=== PATIENT | female | born 1980 | race Caucasian/White ===

== ENCOUNTER 2018-04-02 13:41 | Emergency (ER) | payer OTHER ==
[~2018-04-02] VITALS: Ht 177.8 cm; Wt 64.4 kg
[2018-04-02] MEDS ORDERED: CLINDAMYCIN HC300 MG PO (15:33)
[2018-04-02] MEDS ORDERED: KETO10TA2 PO (15:33)
[2018-04-02] MEDS ORDERED: ORPHENADRINE C100 MG PO (15:33)
[2018-04-02] MEDS ORDERED: INTESTINEX680 M1 PO (15:33)
== END 2018-04-02 15:53 | disposition home or self-care (01) ==
LOC: ER 13:41
DX: M54.5 Low back pain (principal); N75.8 Other diseases of Bartholin's gland